=== PATIENT | female | born 1975 | race African-American/Black ===

== ENCOUNTER 2017-12-17 15:33 | Emergency (ER) | payer MEDICARE, MEDICAID ==
[2017-12-17 16:16] LABS: HEMOGLOBIN 9.4 g/dL (12.0-15.5); MEAN CORPUSCULAR HEMOGLOBIN 30.9 pg (27.0-33.4); MEAN CORPUSCULAR HGB CONC 31.2 g/dL (32.0-36.0); MEAN CORPUSCULAR VOLUME 99 fl (80-97); PLATELET COUNT 235 10^3/uL (150-450); RED BLOOD COUNT 3.03 10^6/uL (3.72-5.28); RED CELL DISTRIBUTION WIDTH 15.9 % (11.5-14.0); WHITE BLOOD COUNT 3.9 10^3/uL (4.0-10.5)
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
[2017-12-17] MEDS ORDERED: KETAMINE HCL INJ 500 MG/10 ML VIAL ONE (16:18)
[2017-12-17] MEDS ORDERED: FENTANYL CITRATE INJ/PF 250 MCG/5 ML AMPULE ONE (16:18)
[2017-12-17 16:20] LABS: INTERNATIONAL RATION (INR) 1.44; PROTHROMBIN TIME 18.2 SEC (11.4-15.4)
[2017-12-17 16:21] LABS: FIBRINOGEN 256 mg/dL (209-497)
[2017-12-17 16:24] VITALS: BP 80/61
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
[2017-12-17 16:35] LABS: ABSOLUTE LYMPHOCYTES# (MANUAL) 2.6 10^3/uL (0.5-4.7); ABSOLUTE MONOCYTES # (MANUAL) 0.3 10^3/uL (0.1-1.4); ABSOLUTE NEUTROPHILS# (MANUAL) 0.9 10^3/uL (1.7-8.2); ALANINE AMINOTRANSFERASE 78 U/L (9-52); ALCOHOL 30 mg/dL (NONE DETECTED); ALKALINE PHOSPHATASE 38 U/L (38-126); ASPARTATE AMINO TRANSFERASE 104 U/L (14-36); BASOPHILS % (MANUAL) 0 % (0-2); BILIRUBIN,DIRECT 0.2 mg/dL (0.0-0.4); BILIRUBIN,TOTAL 0.2 mg/dL (0.2-1.3); BLOOD UREA NITROGEN 3 mg/dL (7-20); CALCIUM 9.5 mg/dL (8.4-10.2); CREATINE KINASE 198 U/L (30-135); EOSINOPHILS % (MANUAL) 2 % (0-6); GLUCOSE 228 mg/dL (75-110); LYMPHOCYTES % (MANUAL) 62 % (13-45); MONOCYTES % (MANUAL) 8 % (3-13); POTASSIUM 4.6 mmol/L (3.6-5.0); SEGMENTED NEUTROPHILS % (MAN) 23 % (42-78); TOTAL CELLS COUNTED 100; TOTAL PROTEIN 5.3 g/dL (6.3-8.2)
[2017-12-17 16:36] LABS: ANISOCYTOSIS SLIGHT; PLATELET COMMENT ADEQUATE; TOXIC GRANULATION SLIGHT
[2017-12-17] MEDS ORDERED: D5W IV ONE (16:49)
[2017-12-17] MEDS ORDERED: [UNRECOGNIZED DRUG - OTHER] IV ONE (16:49)
[2017-12-17] MEDS ORDERED: CALCIUM GLUCONATE 1000 MG/10 ML INJ IV ONE (16:54)
[2017-12-17 17:00] LABS: CHLORIDE 105 mmol/L (98-107); SODIUM 150.9 mmol/L (137-145)
[2017-12-17 17:01] LABS: ANION GAP 36 (5-19)
[2017-12-17 17:04] LABS: CARBON DIOXIDE 10 mmol/L (22-30)
[2017-12-17] MEDS ORDERED: MIDAZOLAM 2 MG/2 ML INJ ONE ×2 (17:09)
[2017-12-17] MEDS ORDERED: VASOPRESSIN INJ 20 UNIT/1 ML VIAL ONE (17:16)
[2017-12-17 17:19] LABS: ARTERIAL BLOOD BASE EXCESS -21.1 mmol/L; ARTERIAL BLOOD FIO2 10%; ARTERIAL BLOOD H2CO3 1.31 mmol/L (1.05-1.35); ARTERIAL BLOOD O2 SATURATION 99.6 % (94-98); ARTERIAL BLOOD PCO2 43.6 mmHg (35-45); ARTERIAL BLOOD TOTAL CO2 10.4 mmol/L (21-25)
[2017-12-17 17:21] LABS: ARTERIAL BLOOD PH 6.94 (7.35-7.45)
[2017-12-17 17:22] LABS: ARTERIAL BLOOD HCO3 9.1 mmol/L (20-26)
[2017-12-17 17:35] LABS: ABSOLUTE EOSINOPHILS # (AUTO) 0.1 10^3/uL (0.0-0.6); ABSOLUTE MONOCYTES (AUTO) 0.2 10^3/uL (0.1-1.4); ABSOLUTE NEUT (AUTO) 4.8 10^3/uL (1.7-8.2); BASOPHILS % (AUTO) 0.5 % (0-2); EOSINOPHILS % (AUTO) 1.1 % (0-6); HEMATOCRIT 24.7 % (36.0-47.0); LYMPHOCYTES % (AUTO) 27.8 % (13-45); MEAN CORPUSCULAR HEMOGLOBIN 30.8 pg (27.0-33.4); MEAN CORPUSCULAR HGB CONC 31.8 g/dL (32.0-36.0); MEAN CORPUSCULAR VOLUME 97 fl (80-97); MONOCYTES % (AUTO) 2.4 % (3-13); RED BLOOD COUNT 2.55 10^6/uL (3.72-5.28); RED CELL DISTRIBUTION WIDTH 15.3 % (11.5-14.0); SEGMENTED NEUTROPHILS % (AUTO) 68.2 % (42-78); TOTAL CELLS COUNTED % (AUTO) 100 %; WHITE BLOOD COUNT 7.1 10^3/uL (4.0-10.5)
[2017-12-17 17:39] LABS: PLATELET COUNT 87 10^3/uL (150-450)
[2017-12-17 17:40] LABS: HEMOGLOBIN 7.9 g/dL (12.0-15.5)
[2017-12-17] MEDS ORDERED: TRANEXAMIC ACID INJ/PF 1,000 MG/10 ML SDV IV ONE (17:42)
[2017-12-17 18:24] LABS: PFA ADP > 300 (56-106); PFA EPI > 300 (55-179)
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
[2017-12-17] MEDS ORDERED: SODIUM BICARBONATE 8.4% INJ 50 MEQ/50 ML DISP.SYRIN ONE (20:53)
[2017-12-17] MEDS ORDERED: EPINEPHRINE INJ 1 MG/10 ML DISP.SYRIN ONE (20:53)
[2017-12-17] MEDS ORDERED: MAGNESIUM SULFATE PF/INJ 40 MEQ/10 ML SDV ONE (20:53)
[2017-12-17] MEDS ORDERED: LIDOCAINE 2% INJ-PF (100 MG/5 ML) SYRINGE ONE (20:53)
[2017-12-17] MEDS ORDERED: NOREPINEPHRINE BITARTRATE INJ/PF 4 MG/4 ML SDV IV ONE (20:53)
== END 2017-12-17 16:15 | disposition other institution (70) ==
LOC: EDBD 15:33 → ER 15:33
DX: S11.90XA Unspecified open wound of unspecified part of neck, initial encounter (principal); S21.302A Unspecified open wound of left front wall of thorax with penetration into thoracic cavity, initial encounter; S27.391A Other injuries of lung, unilateral, initial encounter; S27.1XXA Traumatic hemothorax, initial encounter; I46.9 Cardiac arrest, cause unspecified; I49.01 Ventricular fibrillation; X95.9XXA Assault by unspecified firearm discharge, initial encounter; Z90.49 Acquired absence of other specified parts of digestive tract
CPT/HCPCS: 32160; 99291; 92950; 86900; 86901; 36415; 36430; 86850; 80307; 82803; 82550; 84703; 85025; 85384; 85362; 85610; 85730; 80053; 86920; 83605; 85576; 71045; 36556; 76937; 32480; 21510; C1751; C1894; P9017; P9016; P9035; J2250; J0610; J0171; J3490 ×5; J2001; J3475; J0690; 540; 80074; 86701; 86702; J3010